=== PATIENT | male | born 1990 | race Caucasian/White ===

== ENCOUNTER 2016-12-11 07:07 | Emergency (ER) | payer BC ==
[2016-12-11 07:15] VITALS: BP 144/93
--- NOTE | 2016-12-11 07:36 | UC ---
Skin Complaint HPI - HPI Summary HPI Summary: 3 DAYS OF ITCHY VESICULAR RASH LEFT SIDE OF HEAD, FACE AND TOP OF HEAD ON RIGHT. HAS YELLOW CRUST AND FLUID. PT WENT OUT IN THE [place] OVER THE WEEKEND AND WORE A KNIT HAT HE HASN'T WORN IN ABOUT A YEAR. RASH IS DISTINCTLY ITCHY - NO PAIN, BURNING, TINGLING. - History of Current Complaint Chief Complaint: UCRas Time Seen by Provider: 12/11/16 07:21 Stated Complaint: SKIN ISSUE Hx Obtained From: Patient Onset/Duration: Gradual Onset, Lasting Days, Still Present Timing: Constant Onset Severity: Moderate Current Severity: Moderate Pain Scale Used: 0-10 Numeric Location: Discrete - SCALP Character: Pruritus Aggravating Factor(s): Touch Alleviating Factor(s): Nothing Associated Signs & Symptoms: Positive: Rash. Negative: Nausea, Fever, Tenderness Related History: Possible Reaction to: Environmental Exposure - Allergy/Home Medications Allergies/Adverse Reactions: Allergies Allergy/AdvReac Type Severity Reaction Status Date / Time No Known Allergies Allergy Verified 12/11/16 07:10 Review of Systems Constitutional: Negative Skin: Rash Respiratory: Negative Cardiovascular: Negative Gastrointestinal: Negative All Other Systems Reviewed And Are Negative: Yes PMH/Surg Hx/FS Hx/Imm Hx Previously Healthy: Yes - Surgical History Surgical History: Yes Surgery Procedure, Year, and Place: R knee surgery. - Family History Known Family History: Negative: Hypertension - Social History Alcohol Use: Weekly Substance Use Type: None Smoking Status (MU): Never Smoked Tobacco Physical Exam Triage Information Reviewed: Yes Appearance: Well-Appearing, No Pain Distress, Well-Nourished Vital Signs: Initial Vital Signs Temp 97.6 F 12/11/16 07:11 Pulse 92 12/11/16 07:11 Resp 16 12/11/16 07:11 BP 144/93 12/11/16 07:11 Pulse Ox 99 12/11/16 07:11 Vital Signs Reviewed: Yes Eyes: Positive: Conjunctiva Clear ENT: Positive: Hearing grossly normal Neck: Positive: Supple Respiratory: Positive: No respiratory distress, No accessory muscle use Cardiovascular: Positive: Pulses Normal Abdomen Description: Positive: Soft Musculoskeletal: Positive: No Edema Neurological: Positive: Alert Psychological: Positive: Age Appropriate Behavior Skin: Positive: rashes - VESICULAR RASH LEFT SIDE OF SCALP AND PREAURICULAR AREA , RIGHT PARIETAL AREA Course/Dx - Diagnoses Provider Diagnoses: CONTACT DERMATITIS Discharge - Discharge Plan Condition: Stable Disposition: HOME Prescriptions: Triamcinolone 0.1% CREAM(NF) [Kenalog Cream 0.1%(NF)] 1 applic TOPICAL TID PRN # 1 tube PRN Reason: Itching predniSONE TAB* [Deltasone TAB*] 40 mg PO DAILY #10 tab Patient Education Materials: Contact Dermatitis (ED) Additional Instructions: AVOID HEAT AND HOT WATER TAKE OTC ANTIHISTAMINE DAILY (CLARITIN (LORATADINE), ZYRTEC (CETIRIZINE) OR SAUL (FEXOFENADINE) IN THE MORNING) DO NOT SCRATCH KEEP COOL, CLEAN AND DRY CALL THE NUMBER BELOW FOR ASSISTANCE IN ESTABLISHING WITH A PCP An additional resource available to assist in finding the appropriate physician for your health care needs is the [facility] ([facility]). You may contact them by calling [phone].
== END 2016-12-11 07:40 | disposition home or self-care (01) ==
LOC: UCEAST 07:07
DX: L25.9 Unspecified contact dermatitis, unspecified cause (principal)
CPT/HCPCS: 99212; G0463

== ENCOUNTER 2017-11-02 09:43 | Emergency (ER) | payer SELFPAY ==
--- NOTE | 2017-11-02 09:54 | UC ---
Hand/Wrist HPI - HPI Summary HPI Summary: 27 yo male presents with left wrist pain. He tells me that 2 days ago he woke up with moderate left wrist pain without injury. Didn't think much of it. 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 Yesterday had some mild pain, but overall felt better. Today woke up and his left wrist was much more painful than it has been. He thinks it may be gout as he has had this in his right foot in the past and his symptoms currently feel very similar. He has not taken ibuprofen or anything OTC. Denies injury, fever, chills, numbness, or tingling. - History Of Current Complaint Chief Complaint: UCUpperExtremity Stated Complaint: L WRIST PAIN Time Seen by Provider: 11/02/17 09:54 Hx Obtained From: Patient Onset/Duration: Sudden Onset Severity Initially: Moderate Severity Currently: Severe Pain Intensity: 9 Pain Scale Used: 0-10 Numeric - Allergies/Home Medications Allergies/Adverse Reactions: Allergies Allergy/AdvReac Type Severity Reaction Status Date / Time No Known Allergies Allergy Verified 11/02/17 09:51 PMH/Surg Hx/FS Hx/Imm Hx - Additional Past Medical History Additional PMH: None - Surgical History Surgical History: Yes Surgery Procedure, Year, and Place: R knee surgery. - Family History Known Family History: Negative: Hypertension - Social History Occupation: Employed Full-time Lives: With Family Alcohol Use: Occasionally Substance Use Type: None Smoking Status (MU): Light Every Day Tobacco Smoker Review of Systems Constitutional: Negative Skin: Negative Respiratory: Negative Cardiovascular: Negative Gastrointestinal: Negative Motor: Negative Neurovascular: Negative Musculoskeletal: Other: - Left wrist pain Neurological: Negative Psychological: Negative All Other Systems Reviewed And Are Negative: Yes Physical Exam - Summary Physical Exam Summary: GENERAL: NAD. WDWN. No pain distress. SKIN: No rashes, sores, lesions, or open wounds. CHEST: No accessory muscle use. Breathing comfortably and in no distress. CV: Pulses intact radial and ulnar. Cap refill <2seconds MSK: Left wrist: Moderate TTP over radial aspect volar and dorsal. Mild edema about wrist. Unable to flex or extend due to pain. Is able to supinate and pronate. No snuffbox tenderness. NEURO: Alert. Sensations intact hand and all fingers. PSYCH: Age appropriate behavior. Triage Information Reviewed: Yes Vital Signs: Initial Vital Signs Temp 97.5 F 11/02/17 09:48 Pulse 96 11/02/17 09:48 Resp 18 11/02/17 09:48 BP 143/104 11/02/17 09:48 Pulse Ox 98 11/02/17 09:48 Vital Signs Reviewed: Yes Hand/Wrist Course/Dx - Course Course Of Treatment: XR: REPORT AND IMPRESSION: #. Negative for fracture or malalignment. Preserved joint spaces. Diffuse mild soft tissue swelling. Recheck BP improved. He was given 600mg ibuprofen in the clinical course. Given his degree of pain without injury and PE there is a high suspicion for gout. Advised to return if symptoms worsen or persist. - Differential Dx/Diagnosis Provider Diagnoses: Gout left wrist Discharge - Sign-Out/Discharge Documenting (check all that apply): Patient Departure All imaging exams completed and their final reports reviewed: Yes - Discharge Plan Condition: Stable Disposition: HOME Prescriptions: Colchicine* [Colcrys*] 2 tab PO DAILY #2 tab predniSONE TAB* [Deltasone 20 MG TAB*] 60 mg PO DAILY #15 tab Patient Education Materials: Gout (ED) Referrals: No Primary Care Phys,NOPCP [Primary Care Provider] - Additional Instructions: If you develop a fever, shortness of breath, chest pain, new or worsening symptoms - please call your PCP or go to the ED. Your blood pressure was high at todays visit. Please see your primary provider within 4 weeks for recheck and re-evaluation. - Billing Disposition and Condition Condition: STABLE Disposition: Home
[2017-11-02] MEDS ORDERED: Ibuprofen TAB* 600 MG PO ONE (09:58)
[2017-11-02 10:02] VITALS: BP 138/82
--- NOTE | 2017-11-02 10:24 | RAD ---
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 COMPARISON: August 23, 2008 TECHNIQUE: AP, lateral, and oblique views LEFT wrist. REPORT AND IMPRESSION: #. Negative for fracture or malalignment. Preserved joint spaces. Diffuse mild soft tissue swelling.
== END 2017-11-02 10:50 | disposition home or self-care (01) ==
LOC: UCEAST 09:43
DX: M10.9 Gout, unspecified (principal); F17.210 Nicotine dependence, cigarettes, uncomplicated
CPT/HCPCS: 99212; A9270-GY; G0463

== ENCOUNTER 2017-11-15 10:25 | Emergency (ER) | payer BC ==
[2017-11-15 10:33] VITALS: BP 129/86
--- NOTE | 2017-11-15 11:22 | UC ---
Throat Pain/Nasal Naman HPI - HPI Summary HPI Summary: 27 year old male with 5-6 day history of sinus congestion, sinus pressure, left ear pressure, and mild sore throat. States took 1 dose of Sudafed at onset of symptoms otherwise has not treated. Denies fever, chills, CP, SOB, cough, abdominal pain, nausea or vomiting. Reports sick contact with family members with similar symptoms. - History of Current Complaint Chief Complaint: UCEar Stated Complaint: L EAR COMPLAINT Time Seen by Provider: 11/15/17 11:08 Hx Obtained From: Patient Onset/Duration: Gradual Onset, Lasting Days Severity: Mild Pain Intensity: 3 Cough: None Associated Signs & Symptoms: Positive: Sinus Discomfort, Nasal Discharge. Negative: Dysphagia, Hoarseness, Fever, Vomiting, Rash - Allergies/Home Medications Allergies/Adverse Reactions: Allergies Allergy/AdvReac Type Severity Reaction Status Date / Time No Known Allergies Allergy Verified 11/15/17 10:33 PMH/Surg Hx/FS Hx/Imm Hx - Additional Past Medical History Additional PMH: Denies significant PMH Previously Healthy: Yes - Surgical History Surgical History: Yes Surgery Procedure, Year, and Place: R knee surgery. - Family History Family History: Noncontributory - Social History Occupation: Employed Full-time Lives: With Family Alcohol Use: Occasionally Substance Use Type: None Smoking Status (MU): Never Smoked Tobacco Review of Systems Constitutional: Negative Skin: Negative Eyes: Negative ENT: Sore Throat, Ear Ache, Nasal Discharge, Sinus Pain/Tenderness Respiratory: Negative Cardiovascular: Negative Gastrointestinal: Negative Is Patient Immunocompromised?: No All Other Systems Reviewed And Are Negative: Yes Physical Exam Triage Information Reviewed: Yes Appearance: Well-Appearing, No Pain Distress, Well-Nourished Vital Signs: Initial Vital Signs Temp 97.9 F 11/15/17 10:29 Pulse 73 11/15/17 10:29 Resp 18 11/15/17 10:29 BP 129/86 11/15/17 10:29 Pulse Ox 98 11/15/17 10:29 Vital Signs Reviewed: Yes Eyes: Positive: Conjunctiva Clear. Negative: Discharge ENT: Positive: Pharyngeal erythema - mild with post-nasal drip, Nasal congestion - Nasal mucosa edema, swollen turbinates, Nasal drainage, TMs normal , Sinus tenderness - Maxillary, Uvula midline. Negative: Tonsillar swelling, Tonsillar exudate Neck: Positive: Supple, Nontender, No Lymphadenopathy Respiratory: Positive: Lungs clear, Normal breath sounds, No respiratory distress Cardiovascular: Positive: RRR, No Murmur Neurological: Positive: Alert Skin Exam: Normal Throat Pain/Nasal Course/Dx - Course Course Of Treatment: 27 year old male with 5-6 day history of sinus congestion, sinus pressure, left ear pressure, and mild sore throat. Exam unremarkable except for some edema of the nasal mucosa and tenderness of the maxilary sinuses. Likely viral especially considering sick contact with family members. Recommend conservative treatment including saline rinses, steroid nasal spray, and OTC decongestants. - Differential Dx/Diagnosis Differential Diagnosis/HQI/PQRI: Sinusitis, URI Provider Diagnoses: acute maxillary sinusitis Discharge - Sign-Out/Discharge Documenting (check all that apply): Patient Departure All imaging exams completed and their final reports reviewed: No Studies - Discharge Plan Condition: Stable Disposition: HOME Prescriptions: Fluticasone NASAL SPRAY 50MCG* [Flonase NASAL SPRAY 50MCG*] 2 spray BOTH NARES DAILY #1 btl Patient Education Materials: Sinusitis (ED) Referrals: No Primary Care Phys,NOPCP [Primary Care Provider] - [facility] [place] [facility]IAN REFERRAL [Outside] Additional Instructions: Your symptoms are likely from a viral infection. Viral infections do not respond to antibiotics and are limited to the treatment of symptoms. Viral infections typically run their course in 7-10 days. Drink plenty of fluids to avoid dehydration especially if you are running any fever. Take Sudafed according to directions to help with the congestion and sinus pressure. Use fluticasone (Flonase) nasal spray. Instill 2 sprays each nostril once daily. I recommend using a saline rinse kit such as Netti Pot or NeilMed twice daily to help thin secretions and promote drainage. Take over the counter acetaminophen (Tylenol) or ibuprofen (Advil, Motrin) according to directions as needed for pain or fever. You may also use Chloraseptic spray or Cepacol lonzenges according to directions which contain a numbing medication and can provide some temporary relief from your sore throat. Your blood pressure in the clinic was mildly elevated. It is recommended that you establish with a primary care provider to have this rechecked. I have provided you with the number for the [facility] to help you arrange for follow up. Follow up with primary care if symptoms persist for more than 10 days or if you have any worsening of symptoms. Seek immediate medical attention in the emergency room if you have fever greater than 100.5 F despite taking acetaminophen or ibuprofen, are unable to swallow or develop drooling, are unable to open your mouth fully, are unable to eat or drink, have pain that is not relieved with over the counter pain medication, or have any difficulty breathing. - Billing Disposition and Condition Condition: STABLE Disposition: Home - Attestation Statements Provider Attestation: Per institutional requirements, I have reviewed the chart, however, I was not consulted specifically or made aware of this patient by the midlevel provider. I did not personally evaluate, interact with , or disposition this patient.
== END 2017-11-15 11:30 | disposition home or self-care (01) ==
LOC: UCEAST 10:25
DX: J01.00 Acute maxillary sinusitis, unspecified (principal)
CPT/HCPCS: 99212; G0463

== ENCOUNTER 2018-04-05 18:33 | Emergency (ER) | payer BC ==
[2018-04-05] MEDS ORDERED: Hydrocortisone 1% CREAM* 30 GM TUBE TOPICAL ONE (19:52)
--- NOTE | 2018-04-05 20:03 | UC ---
Skin Complaint HPI - HPI Summary HPI Summary: 1 WEEK OF ITCHY BUMPY RED RASH ON BILATERAL UPPER EXTREMITIES. NO FEVER. HAS NEW LAUNDRY DETERGENT BUT NO OTHER NEW EXPOSURES OF WHICH HE IS AWARE. - History of Current Complaint Chief Complaint: UCSkin Time Seen by Provider: 04/05/18 19:28 Stated Complaint: RASH Hx Obtained From: Patient Onset/Duration: Gradual Onset, Lasting Days, Still Present Timing: Constant Onset Severity: Moderate Current Severity: Moderate Pain Intensity: 0 Pain Scale Used: 0-10 Numeric Location: Discrete - BILATERAL UPPER EXTREMITIES Character: Pruritus, Redness, Raised Aggravating Factor(s): Touch Alleviating Factor(s): Nothing Associated Signs & Symptoms: Positive: Rash. Negative: Nausea, Vomiting, Fever , Chills, Drainage, Tenderness, Red Streaks - Allergy/Home Medications Allergies/Adverse Reactions: Allergies Allergy/AdvReac Type Severity Reaction Status Date / Time No Known Allergies Allergy Verified 04/05/18 19:13 Home Medications: Home Medications Phenylephrine/Dm/Acetaminop/GG [Tylenol Cold-Flu Severe Caplet] 2 each PO ONCE PRN 04/05/18 [History Confirmed 04/05/18] diPHENhydraMINE PO* [Benadryl PO 25 MG TAB*] 50 mg PO ONCE PRN 04/05/18 [ History Confirmed 04/05/18] PMH/Surg Hx/FS Hx/Imm Hx Previously Healthy: Yes - Surgical History Surgical History: Yes Surgery Procedure, Year, and Place: R knee surgery. - Family History Known Family History: Negative: Hypertension Family History: Noncontributory - Social History Alcohol Use: Occasionally Substance Use Type: None Smoking Status (MU): Never Smoked Tobacco Review of Systems All Other Systems Reviewed And Are Negative: Yes Constitutional: Positive: Negative Skin: Positive: Rash Respiratory: Positive: Negative Cardiovascular: Positive: Negative Gastrointestinal: Positive: Negative Physical Exam Triage Information Reviewed: Yes Appearance: Well-Appearing, No Pain Distress, Well-Nourished Vital Signs: Initial Vital Signs Temp 98.1 F 04/05/18 19:09 Pulse 99 04/05/18 19:09 Resp 16 04/05/18 19:09 BP 156/112 04/05/18 19:09 Pulse Ox 99 04/05/18 19:09 Vital Signs Reviewed: Yes Eyes: Positive: Conjunctiva Clear ENT: Positive: Hearing grossly normal Neck: Positive: Supple Respiratory: Positive: No respiratory distress, No accessory muscle use Cardiovascular: Positive: Pulses Normal Abdomen Description: Positive: Soft Musculoskeletal: Positive: No Edema Neurological: Positive: Alert Psychological: Positive: Age Appropriate Behavior Skin: Positive: Rashes - SCATTERED CLUSTERS OF VESICLES BILATERAL UPPER EXTREMITIES - MOSTLY ON FOREARMS. 2 ANNULAR LESIONS WITH HEAPED UP EDGES LEFT FOREARM Course/Dx - Course Course Of Treatment: RASH APPEARS FOR THE MOST PART TO BE A CONTACT DERMATITIS HOWEVER THERE ARE 2 ANNULAR LESIONS ON THE LEFT FOREARM THAT ARE SUSPICIOUS FOR RINGWORM. HOWEVER THESE MAY SIMPLY BE ATYPICAL VARIANTS OF THE SAME RASH. WE WILL TREAT FOR CONTACT DERMATITIS WITH TOPICAL AND ORAL STEROIDS. ADVISED PATIENT TO FOLLOW-UP WITH DERMATOLOGY IN 2 WEEKS IF THE RASH IS NOT IMPROVING WITH THIS TREATMENT. - Diagnoses Provider Diagnosis: Contact dermatitis Discharge - Sign-Out/Discharge Documenting (check all that apply): Patient Departure All imaging exams completed and their final reports reviewed: No Studies - Discharge Plan Condition: Stable Disposition: HOME Prescriptions: predniSONE TAB* [Deltasone 20 MG TAB*] 40 mg PO DAILY #10 tab Triamcinolone 0.1% CREAM(NF) [Kenalog Cream 0.1%(NF)] 1 applic TOPICAL TID PRN # 1 tube PRN Reason: Itching Patient Education Materials: Contact Dermatitis (ED) Referrals: No Primary Care Phys,NOPCP [Primary Care Provider] - Additional Instructions: USE DAILY HYPOALLERGENIC MOISTURIZING LOTION AVOID HEAT AND HOT WATER TAKE OTC ANTIHISTAMINE DAILY (CLARITIN (LORATADINE), ZYRTEC (CETIRIZINE) OR SAUL (FEXOFENADINE) IN THE MORNING, 25-50MG BENADRYL AT NIGHT) DO NOT SCRATCH KEEP COOL, CLEAN AND DRY USE TOPICAL STEROID 2-3 TIMES DAILY ON ITCHY SPOTS. KEEP AWAY FROM MUCOUS MEMBRANES. IF YOU HAVE RECURRENT SYMPTOMS CONSIDER EVAL BY AN SEWER LINE PHOTO INSPECTOR. CALL DERMATOLOGY FOR A FOLLOW-UP APPT IN [address] DER[address]Y IN [place] DR. HARSHA WRIGHT [facility], [facility] [address]; [address] [place] [address] Dr. Heather Wells Address: [address] [place] [id number] [address] [place] [address] DR. LUCIO BARTLETT [facility] [address] [place] [address] DER[address]Y [place] Dr[address] Dianne Rose DERMATOLOGY [place] - Billing Disposition and Condition Condition: STABLE Disposition: Home
[2018-04-05 20:06] VITALS: BP 138/90
== END 2018-04-05 20:09 | disposition home or self-care (01) ==
LOC: UCEAST 18:33
DX: L24.0 Irritant contact dermatitis due to detergents (principal)
CPT/HCPCS: 99212; A9270-GY; G0463

== ENCOUNTER 2018-12-25 17:42 | Emergency (ER) | payer BC ==
[2018-12-25 18:21] VITALS: BP 135/91
--- NOTE | 2018-12-25 18:48 | UC ---
Hand/Wrist HPI - HPI Summary HPI Summary: Pt presents with c/o of left wrist tenderness, swelling, increased warmth and mild erythema. Pt has hx of gout and believes he is having another "gout attack ". Pt denies recent injury. 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 - History Of Current Complaint Chief Complaint: UCRespiratory Stated Complaint: WRIST PAIN Time Seen by Provider: 12/25/18 18:37 Hx Obtained From: Patient ?: No Onset/Duration: Sudden Onset, Lasting Days, Still Present Severity Initially: Mild Severity Currently: Moderate Pain Intensity: 4 Character Of Pain: Dull, Aching, Stiffness Aggravating Factor(s): Movement Alleviating Factor(s): Nothing Associated Signs And Symptoms: Positive: Swelling, Redness Related History: Dominant Hand Right - Risk Factors Compartment Syndrome Risk Factors: Pain - Allergies/Home Medications Allergies/Adverse Reactions: Allergies Allergy/AdvReac Type Severity Reaction Status Date / Time No Known Allergies Allergy Verified 12/25/18 18:17 Home Medications: Home Medications Ibuprofen 600 mg PO Q8HR PRN 12/25/18 [History Confirmed 12/25/18] PMH/Surg Hx/FS Hx/Imm Hx Previously Healthy: Yes - Surgical History Surgical History: Yes Surgery Procedure, Year, and Place: R knee surgery. - Family History Known Family History: Negative: Hypertension Family History: Noncontributory - Social History Occupation: Employed Full-time Lives: With Family Alcohol Use: Occasionally Substance Use Type: None Smoking Status (MU): Never Smoked Tobacco Have You Smoked in the Last Year: No Review of Systems All Other Systems Reviewed And Are Negative: Yes Constitutional: Positive: Negative Skin: Positive: Other - mild erythema left wrist Eyes: Positive: Negative ENT: Positive: Negative Respiratory: Positive: Negative Cardiovascular: Positive: Negative Gastrointestinal: Positive: Negative Genitourinary: Positive: Negative Motor: Positive: Decreased ROM - left wrist Neurovascular: Positive: Negative Musculoskeletal: Positive: Arthralgia - left wrist, Decreased ROM - left wrist, Edema - left wrist, Myalgia - left wrist Neurological: Positive: Negative Psychological: Positive: Negative Is Patient Immunocompromised?: No Physical Exam Triage Information Reviewed: Yes Appearance: Pain Distress - with PE to left wrist Vital Signs: Initial Vital Signs Temp 100.3 F 12/25/18 18:19 Pulse 99 12/25/18 18:19 Resp 18 12/25/18 18:19 BP 135/91 12/25/18 18:19 Pulse Ox 99 12/25/18 18:19 Vital Signs Reviewed: Yes Eye Exam: Normal ENT: Positive: Hearing grossly normal Dental Exam: Normal Neck exam: Normal Respiratory: Positive: No respiratory distress Musculoskeletal: Positive: Strength Limited @ - left wrist, ROM Limited @ - left wrist, Edema @ - left wrist, Other: - mild erythema to left wrist Neurological Exam: Normal Psychological Exam: Normal Skin Exam: Other - mild wrythema left wrist Hand/Wrist Course/Dx - Differential Dx/Diagnosis Differential Diagnosis/HQI/PQRI: Gout, Sprain, Strain Provider Diagnosis: Gout of left wrist Discharge ED - Sign-Out/Discharge Documenting (check all that apply): Patient Departure All imaging exams completed and their final reports reviewed: No Studies - Discharge Plan Condition: Stable Disposition: HOME Prescriptions: Colchicine* [Colcrys*] 0.6 mg PO DAILY #3 tab predniSONE TAB* [Deltasone 20 MG TAB*] 60 mg PO DAILY #12 tab Patient Education Materials: Low Purine Diet (ED), Gout (ED) Forms: *Work Release Referrals: [facility]YS[facility]IAN REFERRAL [Outside] - If Needed No Primary Care Phys,NOPCP [Primary Care Provider] - - Billing Disposition and Condition Condition: STABLE Disposition: Home
== END 2018-12-25 19:00 | disposition home or self-care (01) ==
LOC: UCEAST 17:42
DX: M10.032 Idiopathic gout, left wrist (principal)
CPT/HCPCS: 99212; G0463